=== PATIENT | female | born 1965 | race Caucasian/White ===

== ENCOUNTER 2020-11-29 22:50 | Inpatient (IN) | payer MEDICAID, OTHER ==
[~2020-11-29] VITALS: Ht 157.5 cm; Wt 121.8 kg
[2020-11-29] MEDS ORDERED: ACETAMINOPHEN 500 MG TAB PO ONE (23:15)
[2020-11-30 00:19] LABS: Alanine Aminotransferase 51 U/L (13-56); Albumin 2.8 g/dL (3.4-5.0); Anion Gap 8 (5-15); BUN/Creatinine Ratio 20.7; Blood Urea Nitrogen 31 mg/dL (7-18); Calcium 7.6 mg/dL (8.5-10.1); Carbon Dioxide 23 mmol/L (21-32); Chloride 102 mmol/L (98-107); GFR African American 46 mL/min; GFR Non-African American 38 mL/min; Glucose 94 mg/dL (74-106); Potassium 3.7 mmol/L (3.5-5.1); Sodium 133 mmol/L (136-145)
[2020-11-30 00:22] LABS: Alkaline Phosphatase 81 U/L (45-117); Aspartate Aminotransferase 67 U/L (15-37); Bilirubin, Total 3.7 mg/dL (0.2-1.0); Total Protein 7.1 g/dL (6.4-8.2)
[2020-11-30 00:23] LABS: Lactic Acid w/Reflex 3.2 mmol/L (0.4-2.0)
[2020-11-30] MEDS ORDERED: PIPERACILLIN-TAZO 4.5GM 100 ML IV ONE (00:45)
[2020-11-30] MEDS ORDERED: MORPHINE SULF INJ 2 MG/ML SYRINGE 1ML IV ONE (00:45)
[2020-11-30] MEDS ORDERED: SODIUM CHLORIDE 0.9% 3,500 ML IV ONE (00:45)
[2020-11-30] MEDS ORDERED: VANCOMYCIN HCL 1000 MG VL IR ONE (00:45)
[2020-11-30] MEDS ORDERED: VANCOMYCIN 1GM/250ML 250 ML IV ONE (01:00)
[2020-11-30 01:57] LABS: Basophils # (auto) 0 10 ^3/uL (0-0.2); Basophils % (auto) 0.1 % (0.0-2.0); Eosinophils # (auto) 0 10 ^3/uL (0-0.8); Hematocrit 32.7 % (36.0-46.0); Hemoglobin 11.3 g/dL (12.2-16.2); Lymphocytes # (auto) 1.1 10 ^3/uL (0.4-5.4); Lymphocytes % (auto) 5.6 % (10.0-50.0); Mean Corpuscular Hemoglobin 31.1 pg (28.0-32.0); Mean Corpuscular Hgb Conc. 34.5 g/dL (32.0-36.0); Mean Corpuscular Volume 90.3 fL (80.0-100.0); Monocytes # (auto) 1.3 10 ^3/uL (0-1.3); Monocytes % (auto) 6.5 % (0.0-12.0); Neutrophils # (auto) 17.5 10 ^3/uL (1.6-8.6); Neutrophils % (auto) 87.8 % (37.0-80.0); Platelet Count (auto) 72 10^3/uL (140-450); Red Blood Cells 3.62 10^6/uL (4.0-5.20); Red Cell Distribution Width 17.5 % (11.8-14.3)
[2020-11-30] MEDS ORDERED: ONDANSETRON HCL 4 MG/2 ML VIAL IV PRN (03:15)
[2020-11-30] MEDS ORDERED: ACETAMINOPHEN 500 MG TAB PO PRN (03:15)
[2020-11-30] MEDS: SODIUM CHLORIDE 0.9% 1,000 ML IV SCH ×4 (03:40→21:03)
[2020-11-30 07:43] LABS: Basophils # (auto) 0 10 ^3/uL (0-0.2); Basophils % (auto) 0.3 % (0.0-2.0); Eosinophils # (auto) 0 10 ^3/uL (0-0.8); Eosinophils % (auto) 0.1 % (0.0-7.0); Hematocrit 34.2 % (36.0-46.0); Hemoglobin 11.4 g/dL (12.2-16.2); Lymphocytes # (auto) 0.9 10 ^3/uL (0.4-5.4); Lymphocytes % (auto) 6.1 % (10.0-50.0); Mean Corpuscular Hemoglobin 32.2 pg (28.0-32.0); Mean Corpuscular Hgb Conc. 33.4 g/dL (32.0-36.0); Mean Corpuscular Volume 96.4 fL (80.0-100.0); Monocytes # (auto) 0.9 10 ^3/uL (0-1.3); Monocytes % (auto) 5.8 % (0.0-12.0); Neutrophils # (auto) 13.3 10 ^3/uL (1.6-8.6); Neutrophils % (auto) 87.7 % (37.0-80.0); Nucleated Red Blood Cells % 0.1 %; Platelet Count (auto) 65 10^3/uL (140-450); Red Blood Cells 3.55 10^6/uL (4.0-5.20); Red Cell Distribution Width 19.1 % (11.8-14.3); White Blood Cell 15.2 10^3/uL (4.4-10.8)
[2020-11-30 08:00] LABS: Calcium 6.9 mg/dL (8.5-10.1); Potassium 3.6 mmol/L (3.5-5.1)
[2020-11-30 08:02] LABS: BUN/Creatinine Ratio 26.1
[2020-11-30 08:05] VITALS: BP 113/67
[2020-11-30] MEDS ORDERED: VANCOMYCIN PER PHARMACY 0 MG IV SCH (10:00)
[2020-11-30] MEDS: MORPHINE SULF INJ 2 MG/ML SYRINGE 1ML IV PRN ×2 (10:20→21:43)
[2020-11-30] MEDS ORDERED: SODIUM CHLORIDE 0.9% 1,000 ML IV ONE (10:30)
[2020-11-30] MEDS: PIPERACILLIN-TAZOB 3.375GM 100 ML IV SCH ×2 (12:11→17:51)
[2020-11-30 13:28] LABS: BUN/Creatinine Ratio 26.2; Calcium 6.9 mg/dL (8.5-10.1); Potassium 3.4 mmol/L (3.5-5.1)
[2020-11-30 13:30] VITALS: BP 118/71
[2020-11-30] MEDS ORDERED: METO25TA93 PO (15:23)
[2020-11-30 16:50] VITALS: BP 104/64
[2020-11-30] MEDS ORDERED: VANCOMYCIN 1GM/250ML 250 ML IV SCH (20:00)
[2020-11-30] MEDS: VANCOMYCIN 1,250 MG in D5W 5% 250 ML IV SCH (20:22)
[2020-11-30 22:25] VITALS: BP 112/68
[2020-12-01] MEDS: PIPERACILLIN-TAZOB 3.375GM 100 ML IV SCH ×4 (00:09→18:02)
[2020-12-01 05:13] VITALS: BP 126/61
[2020-12-01 05:58] LABS: Basophils # (auto) 0.1 10 ^3/uL (0-0.2); Basophils % (auto) 0.7 % (0.0-2.0); Eosinophils # (auto) 0 10 ^3/uL (0-0.8); Eosinophils % (auto) 0.4 % (0.0-7.0); Hematocrit 31.6 % (36.0-46.0); Hemoglobin 11.2 g/dL (12.2-16.2); Lymphocytes # (auto) 1.1 10 ^3/uL (0.4-5.4); Lymphocytes % (auto) 8.5 % (10.0-50.0); Mean Corpuscular Hemoglobin 32.4 pg (28.0-32.0); Mean Corpuscular Hgb Conc. 35.5 g/dL (32.0-36.0); Mean Corpuscular Volume 91.2 fL (80.0-100.0); Monocytes # (auto) 0.8 10 ^3/uL (0-1.3); Monocytes % (auto) 6.3 % (0.0-12.0); Neutrophils # (auto) 10.8 10 ^3/uL (1.6-8.6); Neutrophils % (auto) 84.1 % (37.0-80.0); Platelet Count (auto) 72 10^3/uL (140-450); Red Blood Cells 3.46 10^6/uL (4.0-5.20); Red Cell Distribution Width 18.4 % (11.8-14.3); White Blood Cell 12.8 10^3/uL (4.4-10.8)
[2020-12-01 08:59] VITALS: BP 114/67
[2020-12-01] MEDS ORDERED: METOPROLOL SUCCINATE XL 50 MG TAB PO SCH (10:00)
[2020-12-01] MEDS: MORPHINE SULF INJ 2 MG/ML SYRINGE 1ML IV PRN (12:25)
[2020-12-01 13:00] VITALS: BP 122/75
[2020-12-01 16:41] VITALS: BP 123/79
[2020-12-01] MEDS ORDERED: LEVO500T31 PO (18:14)
[2020-12-01] MEDS ORDERED: CLIN300C8 PO (18:14)
[2020-12-01] MEDS ORDERED: ACET325T10 PO (18:14)
[2020-12-01 19:10] VITALS: BP 123/79
[2020-12-01 19:36] VITALS: BP 114/67
[2020-12-01] MEDS: VANCOMYCIN 1,250 MG in D5W 5% 250 ML IV SCH (20:00)
== END 2020-12-01 20:55 | disposition home health service (06) | DRG 720 ==
LOC: ER 22:50 → TELE 11-30 03:14 → TELE-WESTW 11-30 08:05
PROVIDERS: ADMIT Hospitalist; ATTEND Hospitalist
DX: A41.9 Sepsis, unspecified organism (principal); F20.9 Schizophrenia, unspecified; L03.116 Cellulitis of left lower limb; Z20.822 Contact with and (suspected) exposure to COVID-19; I10 Essential (primary) hypertension; J44.9 Chronic obstructive pulmonary disease, unspecified; M19.90 Unspecified osteoarthritis, unspecified site; F17.210 Nicotine dependence, cigarettes, uncomplicated; E66.9 Obesity, unspecified; Z82.49 Family history of ischemic heart disease and other diseases of the circulatory system; Z79.899 Other long term (current) drug therapy; Z68.42 Body mass index [BMI] 45.0-49.9, adult
CPT/HCPCS: 36415; 73718; 80048; 80053; 83605; 85025; 85652; 86141; 87040; 87426; 93970; 96365; 96366; 96368; G0378; J2543; J7060